=== PATIENT | male | born 1985 | race Caucasian/White ===

== ENCOUNTER 2016-08-27 09:37 | Emergency (ER) | payer OTHER ==
[2016-08-27] MEDS ORDERED: KETOROLAC TROMETHAMINE 30 MG/1 ML VIAL IVPUSH ONE (09:50)
[2016-08-27 09:51] VITALS: BP 132/81; PULSE 76; TEMP 98.4; BMI 23.5
[2016-08-27] MEDS ORDERED: KETOROLAC TROMETHAMINE 30 MG/1 ML VIAL ONE (09:53)
--- NOTE | 2016-08-27 09:55 | PDOC ---
History of Present Illness - General Chief Complaint: Back Pain Stated Complaint: LOWER BACK PAIN Time Seen by Provider: 08/27/16 09:39 - History of Present Illness Initial Comments: 08/27/16 09:52 31-year-old male with a negative past medical history, he is on no medications, NKDA Patient works construction, and does a lot of heavy lifting He states that 6 years ago he was bending down and had a sudden low back pain and spasm, which took a while to go away He's had occasional episodes of back pain since then, but has not sought any medical attention 3 weeks ago he again developed some low back pain and spasm off and on, but he felt better for a week after sleeping on the couch He states that his low back pain is now worse again in the past week, and it's worse when he bends, twists, or tries to lift anything He denies any fall or direct trauma to the area He denies any fevers or chills He denies any bowel or bladder symptoms He denies any urinary symptoms He denies any numbness or tingling in his legs He denies any focal weakness He denies any history of IVDA He denies any associated abdominal pain He denies any other complaints at this time, and the remainder of the review of systems is negative Past History - Past Medical History Allergies/Adverse Reactions: Allergies Allergy/AdvReac Type Severity Reaction Status Date / Time No Known Allergies Allergy Verified 08/27/16 09:38 Home Medications: Ambulatory Orders Cyclobenzaprine HCl [Flexeril 10 mg] 10 mg PO TID PRN #20 tablet 08/27/16 Asthma: No Diabetes: No HTN: No Other medical history: DENIES - Psycho/Social/Smoking Cessation Hx Anxiety: No Suicidal Ideation: No Smoking Status: No Smoking History: Former smoker Have you smoked in the past 12 months: No Number of Cigarettes Smoked Daily: 15 Information on smoking cessation initiated: Yes 'Breaking Loose' booklet given: 08/27/16 Hx Alcohol Use: Yes (SOCIAL) Drug/Substance Use Hx: No Substance Use Type: Alcohol *Physical Exam - Vital Signs Last Vital Signs Temp Pulse Resp BP Pulse Ox 98.4 F 76 16 132/81 08/27/16 09:38 08/27/16 09:38 08/27/16 09:38 08/27/16 09:38 - Physical Exam Comments: 08/27/16 09:53 Physical exam Last Vital Signs Temp Pulse Resp BP Pulse Ox 98.4 F 76 16 132/81 08/27/16 09:38 08/27/16 09:38 08/27/16 09:38 08/27/16 09:38 Patient is alert and ambulatory without difficulty Head is normocephalic and atraumatic Back- There is no C-spine T-spine or LS-spine point tenderness There is bilateral paraspinal muscle spasm in the lumbosacral area There is no CVA tenderness There is no posterior rib tenderness Abdomen- Normal active bowel sounds without sputum megaly The abdomen is completely soft and nontender Heart is regular Neuro- There is negative straight leg raising bilaterally Motor strength is 5 out of 5 and equal in the upper and lower extremities bilaterally There is full dorsi flexion and plantar flexion of both feet without difficulty Sensation is intact and equal in the lower extremities bilaterally ED Treatment Course - RADIOLOGY Radiology Studies Ordered: Category Date Time Status SPINE-LUMBAR SACRAL [RAD] Stat Radiology 08/27/16 09:50 Ordered Medical Decision Making - Medical Decision Making 08/27/16 10:58 LS-spine series negative Patient starting to feel better after Toradol and Flexeril Low back strain Addendum Patient noted a tick on his left arm while he was getting dressed The tick was just starting to embed, and was not yet engorged The area was cleansed with Betadine in the tick was removed intact without difficulty will prophylax with one dose of doxycycline *DC/Admit/Observation/Transfer Diagnosis at time of Disposition: Low back strain, Tick bite - Discharge Dispostion Disposition: HOME Condition at time of disposition: Stable - Prescriptions Prescriptions: Cyclobenzaprine HCl [Flexeril 10 mg] 10 mg PO TID PRN #20 tablet PRN Reason: Muscle Spasms - Referrals Referrals: Abhi Boykin MD [Staff Physician] - (Orthopedics-call for follow-up appointment) - Patient Instructions Printed Discharge Instructions: Low Back Pain, DI for Low Back Pain, How to Remove a Tick Additional Instructions: Motrin or Advil every 8 hours for pain-take with food Flexeril-muscle relaxer-every [address] when taking the muscle relaxer Warm compresses and rest Then you may gradually resume activity Please follow-up with orthopedics if you are not improving-you are being referred to Dr. Boykin's group Followup with your primary care physician in 24-48 hours Return immediately if you worsen in any way Take your medications as directed - Post Discharge Activity Work/School Note: Back to Work
[2016-08-27] MEDS ORDERED: CYCLOBENZAPRINE HCL 10 MG TABLET (FP) PO ONE (10:42)
[2016-08-27] MEDS ORDERED: CYCLOBENZAPRINE HCL 10 MG TABLET (FP) ONE (10:44)
[2016-08-27] MEDS ORDERED: DOXYCYCLINE HYCLATE 100 MG CAPSULE PO ONE ×2 (11:00→11:02)
== END 2016-08-27 11:14 | disposition home or self-care (01) ==
LOC: FER 09:37
PROC: 3E0333Z Introduction of Anti-inflammatory into Peripheral Vein, Percutaneous Approach (ICD-10-PCS; principal; 2016-08-27)
DX: S39.012A Strain of muscle, fascia and tendon of lower back, initial encounter (principal); S40.862A Insect bite (nonvenomous) of left upper arm, initial encounter; X58.XXXA Exposure to other specified factors, initial encounter; Y93.9 Activity, unspecified; Y92.9 Unspecified place or not applicable; Z87.891 Personal history of nicotine dependence
CPT/HCPCS: 72100-TC; 96374; 99282-25

== ENCOUNTER 2018-08-20 06:51 | Emergency (ER) | payer BC, OTHER ==
--- NOTE | 2018-08-20 06:58 | PDOC ---
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 Has a history of minor low back strains in the past, consultation and MRI with Dr. BARTLETT year ago, symptoms have always resolved with rest. Review of systems: No radicular symptoms including radiation of pain to the legs , numbness, tingling, pain, or weakness in the lower extremities, unsteadiness of gait. No chest pain, shortness of breath, abdominal pain, nausea, vomiting, diarrhea, visual or focal neurologic symptoms. Denies bowel or bladder incontinence or retention Past medical history: Active, healthy male, minor back strains in the past otherwise no serious medical or surgical problems past her present, no medications Social/family history reviewed and noncontributory Physical exam: Alert and oriented well-developed well-nourished mild distress due to back pain, but cheerful and cooperative Afebrile, vital signs normal HEENT clear Neck supple without bruit mass or nodes Chest clear CV regular without murmur rub or gallop abdomen benign LS spine: No deformities, point tenderness, or inflammation. Normal lumbar lordosis is preserved. Mild pain with flexion and extension. Straight leg raising negative. No distal sensory or motor deficits. Gait stable and unimpaired Impression: Low back strain, uncomplicated Plan: Symptomatic treatment and orthopedic follow-up if no improvement. Rest and medication as directed. Much improved after treatment with Toradol, discharged fully ambulatory in the company of his mother to follow-up as directed. Past History - Past Medical History Allergies/Adverse Reactions: Allergies Allergy/AdvReac Type Severity Reaction Status Date / Time No Known Allergies Allergy Verified 08/27/16 09:38 Home Medications: Ambulatory Orders Diclofenac Potassium 50 mg PO QID #20 tablet 08/20/18 hydrOXYzine PAMOATE [Vistaril -] 25 mg PO QID #20 capsule 08/20/18 Asthma: No Diabetes: No HTN: No - Suicide/Smoking/Psychosocial Hx Smoking Status: No Smoking History: Former smoker Have you smoked in the past 12 months: No Number of Cigarettes Smoked Daily: 15 'Breaking Loose' booklet given: 08/27/16 Hx Alcohol Use: Yes (SOCIAL) Drug/Substance Use Hx: No Substance Use Type: Alcohol *DC/Admit/Observation/Transfer Diagnosis at time of Disposition: Low back strain Qualifiers: Encounter type: initial encounter Qualified Code(s): S39.012A - Strain of muscle, fascia and tendon of lower back, initial encounter - Discharge Dispostion Disposition: HOME Condition at time of disposition: Improved Decision to Admit order: No - Prescriptions Prescriptions: Diclofenac Potassium 50 mg PO QID #20 tablet hydrOXYzine PAMOATE [Vistaril -] 25 mg PO QID #20 capsule - Referrals Referrals: Kev Bartlett MD [Staff Physician] - 1 week - Patient Instructions Printed Discharge Instructions: DI for Low Back Pain Additional Instructions: Rest and medication as directed Heat and gentle massage Avoid the sitting position, either in a chair or in a car seat. This increases muscle spasm See Back Specialist as directed if there is no improvement. - Post Discharge Activity Forms/Work/School Notes: Back to Work
[2018-08-20 06:59] VITALS: BP 113/67; PULSE 64; TEMP 97.5; BMI 24.3
[2018-08-20] MEDS ORDERED: KETOROLAC TROMETHAMINE 60 MG/2 ML VIAL IM ONE (07:38)
[2018-08-20] MEDS ORDERED: KETOROLAC TROMETHAMINE 60 MG/2 ML VIAL ONE (07:43)
== END 2018-08-20 08:46 | disposition home or self-care (01) ==
LOC: FER 06:51
PROC: 3E0233Z Introduction of Anti-inflammatory into Muscle, Percutaneous Approach (ICD-10-PCS; principal; 2018-08-20)
DX: S39.012A Strain of muscle, fascia and tendon of lower back, initial encounter (principal); X58.XXXA Exposure to other specified factors, initial encounter; Y93.89 Activity, other specified; Y92.89 Other specified places as the place of occurrence of the external cause; Z87.891 Personal history of nicotine dependence
CPT/HCPCS: 99282-25

== ENCOUNTER 2019-10-30 14:06 | Emergency (ER) | payer SELFPAY ==
[2019-10-30 14:14] VITALS: BP 127/78; PULSE 74; TEMP 98; BMI 24.3
[2019-10-30] MEDS ORDERED: IBUPROFEN 600 MG TABLET (FP) PO ONE ×2 (14:16→14:19)
--- NOTE | 2019-10-30 14:18 | PDOC ---
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 Pt states he was out last night with friends and "messing around" when he came down on his ankle and had an inversion injury. States he was able to walk on it afterwards, but c/o swelling and pain to the lateral malleolus today. 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 Pt denies all other injuries or complaints. - Physicial Exam PE: 10/30/19 14:23 Gen: aaox3, nad ext: L ankle with swelling, ttp over the anterior aspect of the lateral malleolus, neg anterior drawer, no ttp along the distal fibula or tibia, pulses intact, brisk cap refill, sensation intact, no ecchymosis, FROM of knees and hips, pt ambulated into the ER - Medical Decision Making 10/30/19 14:24 a/p: 34yo male with L ankle pain/swelling -suspect sprain, but will xray for distal fib fx -no ttp 5th met -pulses intact -ambulates on the ankle -will give ibuprofen for pain 10/30/19 14:45 no fx on xray will place in a velcro splint for comfort and dc to home 10/30/19 14:55 discussed xray findings and that the official read is still pending discussed follow up with orthopedics will give work note discussed that further imaging may be needed for further evaluation Discharge - Discharge Information Problems reviewed: Yes Clinical Impression/Diagnosis: Ankle sprain Condition: Stable Disposition: HOME - Admission No - Follow up/Referral Referrals: Luis Angel Samayoa MD [Staff Physician] - Chao Ellison MD [Staff Physician] - Syed Medina DO [Staff Physician] - - Patient Discharge Instructions Patient Printed Discharge Instructions: DI for Ankle Sprain Additional Instructions: Please apply ice 20 min on and 20 min off to the left ankle. Please wear the ankle aircast. Please make a follow up appointment with the orthopedist for further evaluation of your pain. Please take ibuprofen or tylenol as needed for the pain. Please return to the ER with any further concerns or complaints. - Post Discharge Activity Work/Back to School Note: Back to Work
--- NOTE | 2019-10-30 15:39 | PDOC ---
History of Present Illness - General Chief Complaint: Injury Stated Complaint: LEFT ANKLE INJURY Time Seen by Provider: 10/30/19 14:17 History Source: Patient Exam Limitations: No Limitations - History of Present Illness Initial Comments: 10/30/19 15:35 34y M with no significant PMH presenting to the ER for L ankle pain after twisting it yesterday. Pt states he felt his ankle roll and thought he heard a pop. He endorses pain in the L ankle but is able to bear weight. Denies falling, knee pain, numbness, decreased ROM, LOC, back pain, weakness. PMD: PMH: none PSH: none Meds: none allergies: nkda Social: denies Past History - Medical History Allergies/Adverse Reactions: Allergies Allergy/AdvReac Type Severity Reaction Status Date / Time No Known Allergies Allergy Verified 10/30/19 14:07 Home Medications: Ambulatory Orders NK [No Known Home Medication] 10/30/19 Asthma: No COPD: No Diabetes: No HTN: No - Psycho-Social/Smoking History Smoking Status: No Smoking History: Current some day smoker Have you smoked in the past 12 months: No Number of Cigarettes Smoked Daily: 1 Information on smoking cessation initiated: Yes 'Breaking Loose' booklet given: 08/27/16 - Substance Abuse Hx (Audit-C & DAST Scrn) How often the patient has a drink containing alcohol: 2-4 times / month Number of drinks the patient has on a typical day: 5 or 6 Score: In Men: 4 or > Positive; In Women: 3 or > Positive: 4 Screen Result (Pos requires Nsg. Audit-10AR): Positive In the last yr the pt used illegal drug/Rx for NonMed reason: No Score: Yes response is considered Positive: 0 Screen Result (Positive result requires Nsg. DAST-10): Negative Review of Systems - Review of Systems Constitutional: No: Symptoms Reported HEENTM: No: Symptoms Reported Respiratory: No: Symptoms reported Cardiac (ROS): No: Symptoms Reported ABD/GI: No: Symptoms Reported Musculoskeletal: Yes: See HPI Integumentary: No: Symptoms Reported Neurological: No: Symptoms reported *Physical Exam - Vital Signs Last Vital Signs Temp Pulse Resp BP Pulse Ox 98 F 74 18 127/78 99 10/30/19 14:07 10/30/19 14:07 10/30/19 14:07 10/30/19 14:07 10/30/19 14:07 - Physical Exam General Appearance: Yes: Nourished, Appropriately Dressed. No: Apparent Distress HEENT: positive: EOMI, NORMAN Neck: positive: Trachea midline, Supple Respiratory/Chest: positive: Lungs Clear, Normal Breath Sounds. negative: Paradoxal Breathing, Crackles, Rales, Rhonchi, Stridor, Wheezing Cardiovascular: positive: Regular Rhythm, Regular Rate, S1, S2 Vascular Pulses: Dorsalis-Pedis (R): 2+, Doralis-Pedis (L): 2+ Gastrointestinal/Abdominal: positive: Normal Bowel Sounds, Soft. negative: Tender Musculoskeletal: positive: Normal Inspection. negative: Decreased Range of Motion Extremity: positive: Normal Capillary Refill, Normal Range of Motion, Pelvis Stable, Other (L lateral malleolus tenderness). negative: Pedal Edema, Swelling, Calf Tenderness Integumentary: positive: Normal Color, Dry, Warm Neurologic: positive: transportation dispatch manager II-XII NML intact, Fully Oriented, Alert, Normal Mood/Affect, Normal Response, Motor Strength 08/08 ED Treatment Course - RADIOLOGY Radiology Studies Ordered: Category Date Time Status ANKLE-LEFT [RAD] Stat Radiology 10/30/19 14:16 Taken - Medications Given in the ED: ED Medications Discontinued Medications Generic Name Dose Route Start Last Admin Trade Name Hilarioq PRN Reason Stop Dose Admin Ibuprofen 600 mg 10/30/19 14:16 10/30/19 14:17 Motrin - PO 10/30/19 14:17 600 mg ONCE ONE Administration Medical Decision Making - Medical Decision Making 10/30/19 15:37 34y M presenting to ER for L ankle pain after rolling it yesterday. able to bear weight. vitals wnl pe notable for L lateral malleolus tenderness otherwise full active and passive ROM of ankle, pt is ambulatory on ankle and is able to bear weight. suspect sprain v. fracture. -xr -ibuprofen. no fracture on xray. pt placed in air boot and note for work given. return precautions provided. Discharge - Discharge Information Problems reviewed: Yes Clinical Impression/Diagnosis: Ankle sprain Qualifiers: Encounter type: initial encounter Involved ligament of ankle: unspecified ligament Laterality: left Qualified Code(s): S93.402A - Sprain of unspecified ligament of left ankle, initial encounter Condition: Stable Disposition: HOME - Follow up/Referral Referrals: Luis Angel Samayoa MD [Staff Physician] - Syed Medina DO [Staff Physician] - Chao Ellison MD [Staff Physician] - - Patient Discharge Instructions Patient Printed Discharge Instructions: DI for Ankle Sprain Additional Instructions: Please apply ice 20 min on and 20 min off to the left ankle. Please wear the ankle aircast. Please make a follow up appointment with the orthopedist for further evaluation of your pain. Please take ibuprofen or tylenol as needed for the pain. Please return to the ER with any further concerns or complaints. - Post Discharge Activity Work/Back to School Note: Back to Work
== END 2019-10-30 15:03 | disposition home or self-care (01) ==
LOC: FER 14:06
DX: S93.402A Sprain of unspecified ligament of left ankle, initial encounter (principal)
CPT/HCPCS: 73610-TC-LT-FY; 99283-25